=== PATIENT | female | born 1955 | race Caucasian/White ===

== ENCOUNTER → 2016-04-28 | Outpatient (CLI) | payer MEDICARE, MEDICAID ==
[~2016-04-28] MED LIST: ACYCLOVIR800 MG PO; ASPIRIN 81MG TA81 MG PO; CIPRO 500MG TA500 MG PO; CYCLOBENZAPRINE10 M1 PO; DULOXETINE HYDR30 MG PO; FLUOXETINE HCL40 MG PO; GABAPENTIN300 M1 PO; HYDROCHLOROTHIA1 TA2 PO; HYDROCHLOROTHIA25 M1 PO; HYDROCODONE-APA1 TA1 PO; IBUPROFEN800 MG PO; NAPROXEN500 M1 PO; OMEPRAZOLE20 MG PO; PYRIDIUM200 M2 PO; ROPINIROLE HY0.25 MG PO; SIMVASTATIN20 MG PO; TESSALON PERLE100 M1 PO; TRAMADOL 50MG T50 M1 PO
--- NOTE | 2016-04-28 11:34 | RADIOLOGY REPORT PS360 ---
BONE DENSITOMETRY(HIP:LT SPINE HISTORY: POST MENOPAUSAL ORDERING PHYSICIAN: Fabiano Christiansen MD PATIENT AGE: 61 years COMPARISON: None FINDINGS: The BMD measured at the right femoral neck is 0.808 g/cm squared with a T score of -1.7. This is considered Osteopenic according to the World Health Organization criteria. Fracture risk is Moderate. Treatment is advised. IMPRESSION: Osteopenia of the left hip
--- NOTE | 2016-04-30 09:35 | RADIOLOGY REPORT PS360 ---
DIG MAMM-SCREEN BRIGID W/CAD CAD Screening ORDERING PHYSICIAN : Fabiano Christiansen MD PATIENT AGE: 61 years GENDER: Female COMPARISON: Previous mammograms: 9 07/27 and 11/27/2013. 39 extending INDICATION: Routine screening 61-year-old. Estrogen vaginal cream.. Patient with no new complaints. Family history. Maternal great grandmother TECHNIQUE: Standard CC and MLO images were obtained. R2 CAD reviewed. FINDINGS: Areas of Dense breast bilaterally most pronounced towards upper-outer quadrant and superior breast bilaterally. However we see no significant interval change.. RIGHT BREAST: Of stable bladder pattern with no new areas of concern LEFT BREAST: Small round nodular density just beneath the skin at the lateral left breast is stable bilateral 5 mm size. Unchanged 2013 The generalized density to the breast appears stable with no significant new findings. No suspicious calcification. No architectural distortion. IMPRESSION: ... Stable bilateral mammogram, with no new areas of concern Dense breasts decreased sensitivity mammography. Would encourage self breast examination. A palpable areas of concern arise ultrasound is a useful compliment to mammography in areas of increased breast density BI-RADS CATEGORY: 2_Benign RECOMMENDED FOLLOWUP: 12M 12 MONTH FOLLOW-UP (A letter has been sent to the patient regarding results of the study.)
== END ==
LOC: RAD 09:02
DX: Z12.31 Encounter for screening mammogram for malignant neoplasm of breast (principal); Z78.0 Asymptomatic menopausal state
CPT/HCPCS: G0202

== ENCOUNTER → 2016-11-05 | Outpatient (CLI) | payer MEDICARE, MEDICAID | LOC: RT 13:40 | DX: R06.02 Shortness of breath (principal); J44.0 Chronic obstructive pulmonary disease with (acute) lower respiratory infection ==

== ENCOUNTER → 2016-11-29 | Outpatient (CLI) | payer MEDICARE ==
--- NOTE | 2016-11-29 11:57 | RADIOLOGY REPORT PS360 ---
BONE DENSITOMETRY(HIP:LT SPINE HISTORY: 6 MONTH F/U ORDERING PHYSICIAN: Fabiano Christiansen MD PATIENT AGE: 61 years COMPARISON: None FINDINGS: The BMD measured at the right femoral neck is 0.763 g/cm squared with a T score of -2. This is considered Osteopenic according to the World Health Organization criteria. Fracture risk is Moderate. Treatment is advised. Lumbar spine density has increased by 3% compared to 04/28/2016 with a T score of 0.2. The mean density of the hips is unchanged. IMPRESSION: Osteopenia
== END ==
LOC: RAD 09:49
DX: M85.89 Other specified disorders of bone density and structure, multiple sites (principal)